=== PATIENT | male | born 1960 | race Caucasian/White ===

== ENCOUNTER 2017-06-19 01:55 | Emergency (ER) | payer OTHER, SELFPAY ==
[~2017-06-19] VITALS: Ht 182.9 cm; Wt 117.9 kg
[~2017-06-19 01:55] MED LIST: CARAFATE1 GM PO; COREG6.25 MG PO; HYDROCHLOROTHIA25 M2 PO; HYDROCODONE-AP1 EAC6 PO; JANUVIA100 MG PO; METFORMIN HCL500 MG PO; MOBIC15 MG; SPIRIVA; VENTOLIN HFA 1818 GM INH; ZOFRAN ODT4 M1 PO
[2017-06-19] MEDS ORDERED: DULERA 100 MCG/13 GM INH (02:01)
[2017-06-19] MEDS ORDERED: SPIRIVA INH (02:01)
[2017-06-19 02:24] LABS: ABSOLUTE BASOPHILS 0.1 thou/uL (0.0-0.2); ABSOLUTE LYMPHOCYTES 3.1 thou/uL (0.8-5.3); BASOPHILS 0.6 %; EOSINOPHILS 0.1 %; HEMATOCRIT 45.4 % (42.0-52.0); LYMPHOCYTES 25.6 %; MCHC 33.1 g/dL (28.0-37.0); MCV 90.5 fL (80.0-100.0); MONOCYTES 7.8 %; MPV 8.1 fl. (7.2-11.1); NUCLEATED RBCS 0 /100WBC; PLATELET COUNT* 205 thou/uL (150-400); POLYS 65.9 %; RBC 5.01 mil/uL (4.50-6.00); RDW-CV 14.3 % (10.5-14.5); WBC 12.2 thou/uL (4.0-11.0)
[2017-06-19 02:40] LABS: ANION GAP 8 mmol/L (7-16); BUN 18 mg/dL (7-18); CHLORIDE 100 mmol/L (98-107); CO2 29 mmol/L (21-32); CREATININE 1.2 mg/dL (0.6-1.3); GLUCOSE 147 mg/dL (70-99); POTASSIUM 3.6 mmol/L (3.5-5.1); SODIUM 137 mmol/L (136-145)
[2017-06-19 02:51] LABS: ALBUMIN 3.3 g/dL (3.4-5.0); ALKALINE PHOSPHATASE 104 U/L (46-116); NT-PRO BRAIN NAT PEPTIDE 242 pg/mL (<300); SGOT 39 U/L (15-37); SGPT 92 U/L (30-65); TOTAL BILIRUBIN 0.4 mg/dL (<0.1-1.0); TOTAL PROTEIN 6.8 g/dL (6.4-8.2); TROPONIN-I LEVEL <0.06 ng/mL (<0.06)
[2017-06-19 03:02] LABS: INFLUENZA A ANTIGEN None Detected (None Detect); INFLUENZA B ANTIGEN None Detected (None Detect)
[2017-06-19] MEDS ORDERED: PULMICORT0.5 MG/22 INH (03:17)
[2017-06-19] MEDS ORDERED: ATIVAN1 MG PO (03:24)
[2017-06-19 03:34] VITALS: BP 124/66
--- NOTE | 2017-06-19 10:25 | EKG ---
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 06/19/17 1025 4 4 Luis Medina MD, [facility] /EPI
== END 2017-06-19 03:34 | disposition home or self-care (01) ==
LOC: M.ERS 01:55
PROVIDERS: Emergency Medicine
DX: J40 Bronchitis, not specified as acute or chronic (principal); E11.9 Type 2 diabetes mellitus without complications; J44.9 Chronic obstructive pulmonary disease, unspecified; I10 Essential (primary) hypertension; F17.210 Nicotine dependence, cigarettes, uncomplicated

== ENCOUNTER 2017-06-23 08:44 | Inpatient (IN) | payer OTHER, SELFPAY ==
[~2017-06-23] VITALS: Ht 182.9 cm; Wt 117.9 kg
[~2017-06-23 08:44] MED LIST changes: +ATIVAN1 MG PO; +DULERA 100 MCG/13 GM INH; +PULMICORT0.5 MG/22 INH; +SPIRIVA INH
[2017-06-23 08:52] VITALS: BP 144/76
[2017-06-23] MEDS ORDERED: PREDNISONE 20 M20 MG PO (09:03)
[2017-06-23 09:30] LABS: HEMATOCRIT 46.3 % (42.0-52.0); HEMOGLOBIN 15.4 gm/dL (14.0-18.0); MCH 29.5 pg (26.0-34.0); MCHC 33.2 g/dL (28.0-37.0); MCV 88.7 fL (80.0-100.0); MPV 8.5 fl. (7.2-11.1); NUCLEATED RBCS 0 /100WBC; PLATELET COUNT* 278 thou/uL (150-400); RBC 5.22 mil/uL (4.50-6.00); RDW-CV 14.3 % (10.5-14.5); WBC 22.5 thou/uL (4.0-11.0)
[2017-06-23 09:47] LABS: ANION GAP 9 mmol/L (7-16); BUN 15 mg/dL (7-18); CALCIUM 8.9 mg/dL (8.5-10.1); CHLORIDE 96 mmol/L (98-107); CO2 27 mmol/L (21-32); CREATININE 1.1 mg/dL (0.6-1.3); GLUCOSE 289 mg/dL (70-99); POTASSIUM 3.6 mmol/L (3.5-5.1); SODIUM 132 mmol/L (136-145)
[2017-06-23 09:51] LABS: ALBUMIN 3.1 g/dL (3.4-5.0); ALKALINE PHOSPHATASE 107 U/L (46-116); LIPASE 98 U/L (73-393); MAGNESIUM 1.5 mg/dL (1.8-2.4); NT-PRO BRAIN NAT PEPTIDE 215 pg/mL (<300); SGOT 22 U/L (15-37); SGPT 64 U/L (30-65); TOTAL BILIRUBIN 1.3 mg/dL (<0.1-1.0); TOTAL PROTEIN 6.7 g/dL (6.4-8.2); TROPONIN-I LEVEL <0.06 ng/mL (<0.06)
[2017-06-23 10:04] LABS: ABSOLUTE LYMPHOCYTES 0.5 thou/uL (0.8-5.3); PLATELET ESTIMATE ADEQUATE
[2017-06-23 10:44] VITALS: BP 139/79
--- NOTE | 2017-06-23 15:11 | EKG ---
[place] [address] ELECTROCARDIOGRAM REPORT Name: ROLANDO HAMILTON Room: [address] ADM IN [facility]#: [id number] Admission: 06/23/17 Attend Phys: Willie Redman, Discharge: Date of : 60 Report #: [id number] THIS REPORT FOR: //name// [facility] ED Test Date: 2017-06-23 Test Time: 09:12:54 Pat Name: ROLANDO HAMILTON Department: Room: 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 : 1960 Requested By: Pérez Gloria Order Number: [id number] MD: Luis Medina Measurements Intervals [place] Rate: 80 P: 75 [place]: 150 QRS: -23 QRSD: 149 T: 88 QT: 405 QTc: 468 Interpretive Statements Sinus rhythm Atrial premature complex Probable left atrial enlargement Right bundle branch block Baseline wander in lead(s) V1 Compared to ECG 06/19/2017 02:25:26 Atrial premature complex(es) now present Electronically Signed On 06-23-2017 15:11:31 [employer] by Luis Medina [email or web address] <ELECTRONICALLY SIGNED> By: Luis Medina MD, [facility] 06/23/17 1511 1 1 Luis Medina MD, [facility] /EPI
[2017-06-23 15:15] LABS: CALCIUM 8.9 mg/dL (8.5-10.1); CREATININE 1.2 mg/dL (0.6-1.3); POTASSIUM 4.3 mmol/L (3.5-5.1)
[2017-06-23 15:31] VITALS: BP 146/68
[2017-06-23 21:00] VITALS: BP 112/67
[2017-06-24 00:03] VITALS: BP 141/78
[2017-06-24 07:30] VITALS: BP 145/69
[2017-06-24 09:21] LABS: HEMATOCRIT 44.2 % (42.0-52.0); HEMOGLOBIN 14.5 gm/dL (14.0-18.0); MCH 29.6 pg (26.0-34.0); MCHC 32.8 g/dL (28.0-37.0); MCV 90.2 fL (80.0-100.0); MPV 8.4 fl. (7.2-11.1); RBC 4.9 mil/uL (4.50-6.00); RDW-CV 14.4 % (10.5-14.5); WBC 16.9 thou/uL (4.0-11.0)
[2017-06-24 09:37] LABS: ALBUMIN 2.9 g/dL (3.4-5.0); CALCIUM 8.9 mg/dL (8.5-10.1); CREATININE 1.1 mg/dL (0.6-1.3); MAGNESIUM 1.7 mg/dL (1.8-2.4); POTASSIUM 4.1 mmol/L (3.5-5.1); TOTAL BILIRUBIN 0.7 mg/dL (<0.1-1.0); TOTAL PROTEIN 6.4 g/dL (6.4-8.2)
[2017-06-24 16:21] LABS: BE -0.5 mmol/L (-2 to +3); HCO3 22.1 mmol/L (22.0-26.0); PCO2 31.3 mmHg (35.0-45.0); PO2 61.1 mmHg (75.0-100.0); pH 7.467 (7.340-7.450)
[2017-06-25 04:42] LABS: HEMATOCRIT 43.6 % (42.0-52.0); HEMOGLOBIN 14.5 gm/dL (14.0-18.0); MCH 29.9 pg (26.0-34.0); MCHC 33.4 g/dL (28.0-37.0); MCV 89.6 fL (80.0-100.0); MPV 8.8 fl. (7.2-11.1); RBC 4.86 mil/uL (4.50-6.00); RDW-CV 14.3 % (10.5-14.5); WBC 19.8 thou/uL (4.0-11.0)
[2017-06-25 04:59] LABS: CALCIUM 9.1 mg/dL (8.5-10.1); MAGNESIUM 1.9 mg/dL (1.8-2.4); POTASSIUM 3.4 mmol/L (3.5-5.1)
[2017-06-25 07:30] VITALS: BP 150/63
[2017-06-25 15:30] VITALS: BP 150/58
[2017-06-25 18:14] LABS: URINE BILIRUBIN NEGATIVE (Negative); URINE BLOOD TRACE (Negative); URINE CLARITY CLEAR; URINE COLOR YELLOW; URINE GLUCOSE-RANDOM 2+ (Negative); URINE KETONES NEGATIVE (Negative); URINE LEUKOCYTES-REFLEX NEGATIVE (Negative); URINE NITRITE-REFLEX NEGATIVE (Negative); URINE PROTEIN NEGATIVE (Negative); URINE SPECIFIC GRAVITY 1.015 (1.005-1.030); URINE UROBILINOGEN 0.2 E.U./dl (0.2-1.0)
[2017-06-25 18:51] LABS: INFLUENZA A ANTIGEN None Detected (None Detect); INFLUENZA B ANTIGEN None Detected (None Detect)
[2017-06-25 21:46] VITALS: BP 128/54
[2017-06-26 00:32] VITALS: BP 134/60
[2017-06-26 06:01] LABS: CALCIUM 9.6 mg/dL (8.5-10.1); CREATININE 1.1 mg/dL (0.6-1.3); MAGNESIUM 1.9 mg/dL (1.8-2.4)
[2017-06-26 07:45] VITALS: BP 137/55
[2017-06-26 08:38] VITALS: BP 137/55
[2017-06-26] MEDS ORDERED: SINGULAIR 10 MG10 M1 PO (10:41)
[2017-06-26] MEDS ORDERED: LEVAQUIN 750 M750 MG PO (10:41)
[2017-06-26] MEDS ORDERED: PREDNISONE 10 M10 MG PO (10:43)
[2017-06-26 10:52] VITALS: BP 137/55
[2017-06-26 11:44] VITALS: BP 137/55
--- NOTE | 2017-06-26 11:54 | CON ---
[address] [address] CONSULTATION Name: ROLANDO HAMILTON Room: [address] IN [facility]#: [id number] Admission: 06/23/17 Attend Phys: Willie Redman, Discharge: 06/26/17 Date of : 60 Report #: [id number] THIS REPORT FOR: //name// CC: Suleiman Redman DATE OF SERVICE: 06/25/2017 REQUESTING PHYSICIAN: Willie Redman MD REASON FOR CONSULTATION: Pneumonia. DISCUSSION: The patient is a pleasant 56-year-old man with a long history of significant tobacco abuse up to 2 packs of cigarettes per day. He does carry a diagnosis of COPD. He has never had, however, full PFTs done. He has been on a variety of inhalers at different times. He notes he does tend to get bronchitis a couple times a year. His family physician will usually provide him with an antibiotic and steroids to get him through those times. He became ill several weeks ago, developed a fever, body aches. Called his physician and was placed on Levaquin and steroids. Was not physically seen at that time, so consequently had no flu swab done or any other evaluation that way. He did have some initial improvement, though did not get back to his baseline. However, then he relapsed again. He was seen in the Emergency Department here on 06/19/2017. At that time, he had a fever up to 102.5 and increasing shortness of breath. When he was seen in the ER here, at that time, O2 saturations were in the 90s, white count was mildly elevated. He was started on some inhaled Pulmicort at that time. Recently, he has been on Dulera and Spiriva. Influenza screen at that time was negative. He returned to the ED on 06/23/2017 due to marked shortness of breath. He was noted to be hypoxic. He was actively bronchospastic. He was admitted to the hospital. He has been treated with additional antibiotics and steroids. Blood sugars were quite high, so his last dose of the steroids was last night. Chest x-rays were not thought to show any acute infiltrates. Since he was still having problems, he was sent for CT scan of his chest. He had one done late yesterday afternoon, which showed bilateral opacities. It was done without contrast. He was then sent back to CT and had a CT angiogram done of his chest. This was negative for pulmonary emboli. Similar to the scan done earlier, continue to show bilateral infiltrates (somewhat patchy as well as ground glass infiltrates). Also appeared to have some prominence of interstitial markings bilaterally. He has been afebrile over the last several days. Subjectively, he is feeling much better. Cough has improved. Not bringing up much sputum now. No hemoptysis. No chest pain. He is extremely anxious. He is concerned to the cost of the hospitalization as well [place] [address] CONSULTATION Name: ROLANDO HAMILTON Room: [address] IN [facility].#: [id number] Admission: 06/23/17 Attend Phys: Willie Redman, Discharge: 06/26/17 Date of : 60 Report #: [id number] He did not get a flu shot this season. 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 They have had issues with their water system. At times, the water has not been hot enough. Also, boiler leakage. He is not aware of any definite mold exposure, but again note the age of the [employer] complex. He does have 3 cats and a turtle at home. He has had no recent travel. No history of TB or exposure to TB that he is aware of. No prior history of thromboembolic disease or heart disease. MEDICATIONS: Currently, at this time, he has been on insulin as needed, lorazepam for anxiety, nicotine patch, ceftriaxone, azithromycin, Coreg, Lovenox for DVT prophylaxis, hydrochlorothiazide, budesonide, Glucophage, Ambien for sleep. He had been on methylprednisolone 62.5 mg IV every 8 hours until his last dose yesterday evening. SOCIAL HISTORY: He is . His does not smoke. 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 Pets at home as noted. FAMILY HISTORY: Positive for lung disease in his father, unknown type. His father was also a heavy smoker. Family history is also positive for heart disease. PHYSICAL EXAMINATION: GENERAL: The patient is seen in his room. His is also present who helped with the history. HEENT: Head is normocephalic and atraumatic. Sclerae nonicteric. Mucous membranes are moist. NECK: Negative for adenopathy. No JVD is noted. No cervical or supraclavicular adenopathy. HEART: Regular rate. He is not tachycardic. No S3 is heard. LUNGS: Reveal breath sounds to be diminished. He has a prolonged expiratory phase. He does have rhonchi heard bilaterally as well as expiratory wheezes. Excursion is equal. No CVA tenderness. ABDOMEN: Protuberant, soft, without appreciable hepatosplenomegaly. EXTREMITIES: He has no clubbing noted. Radial pulses are present. Lower extremities, he does have trace edema noted. SKIN: Warm and dry. NEUROLOGIC: He is alert and oriented x 3. LABORATORY AND X-RAY FINDINGS: Chest films and his CT scan were reviewed. Heart size is upper limits of normal. He does have some prominence of his markings seen particularly in the left base. On the CT scan of his chest, he did not have any pulmonary emboli. He does have the bilateral patchy ground glass infiltrates noted. Overall, certainly appreciate interstitial infiltrates throughout. On his chemistry, his BUN is 19, creatinine of 1.0, potassium is 3.4, serum bicarbonate is 29. Bilirubin was 1.3 on admission, has dropped to 0.7. AST was 39 last week, down to 13 this morning. Albumin 2.9. ProBNP [address]. [place] [address] CONSULTATION Name: ROLANDO HAMILTON Room: [address]#: [id number] Admission: 06/23/17 Attend Phys: Willie Redman, Discharge: 06/26/17 Date of : 60 Report #: [id number] Lactic acid was normal. White blood cell count on admission was 22,500 this morning down to 19,800. He has not had an elevation in his eosinophils. Hemoglobin 14.5, hematocrit of 43.6, platelets are normal. Influenza screen was negative. Mycoplasma titers have been requested. Urine for legionella and strep pneumonia antigen are pending. Arterial blood gases done yesterday, he had a pH of 7.47, a pCO2 of 31, pO2 of 61, bicarbonate of 22 with a saturation of 91%. Blood cultures are negative. IMPRESSION: 1. Bilateral pulmonary infiltrates, best appreciated on CT imaging. May have some chronic interstitial lung disease baseline along with his chronic obstructive pulmonary disease. With his history, this does appear main issue now has been pneumonia. Could be viral. 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 There is also a possibility of a hypersensitivity pneumonitis. However, eosinophils have not been elevated, does make it somewhat less likely. 2. Chronic obstructive pulmonary disease exacerbation. Severity of his lung disease is unknown. He is generally able to keep up with his work. He may walk up to a mile and a half to 2 miles per day, but does not require any strenuous lifting, etc. I suspect he probably has at least moderate disease. 3. Tobacco abuse. 4. Diabetes mellitus, blood sugars elevated in part due to his steroid use. 5. Obesity. RECOMMENDATIONS: 1. Would continue antibiotics at this time. 2. I have resumed IV steroids albeit at a lower dose. I feel he does need them at this time. 3. I have also added Brovana while he is here in the hospital, which can help take the place of the Dulera he was on at home. 4. He is quite anxious to be discharged [facility]. However, he does not look ready for discharge today. 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 5. Long-term smoking cessation is certainly advised. 6. Once he is over this acute event, consider full pulmonary function studies. Will need some follow up imaging in the future as well. 7. If he does not continue to improve or have clearing of infiltrates in the future, additional evaluation may also be indicated to assess for ILD or hypersensitivity pneumonitis. 8. Also consider echocardiogram. 9. Apparently he is out of network. He is quite concerned with any additional [address] [address] CONSULTATION Name: ROLANDO HAMILTON Narinder Room: [address] IN [facility]#: [id number] Admission: 06/23/17 Attend Phys: Willie Redman, Discharge: 06/26/17 Date of : 60 Report #: [id number] testing that may be done at this time given the fact he is out of network and the potential cost that he may be faced with. <ELECTRONICALLY SIGNED> By: Joshua Ruffin MD 06/26/17 1154 1115 [id number] Carrion MD /nt
[2017-06-26 16:12] LABS: GLYCOHEMOGLOBIN (HGB A1C) 8.8 % (4.8-5.6)
[2017-06-27 21:13] LABS: MYCOPLASMA PNEUMONIA IgG 207 U/mL (0-99); MYCOPLASMA PNEUMONIA IgM <770 U/mL (0-769)
== END 2017-06-26 10:45 | disposition home or self-care (01) | DRG 177 ==
LOC: M.ERS 08:44 → M.ORTHSURG 10:16 → M.TBA-ER 10:16 → M.ORTHSURG 12:24
PROVIDERS: Emergency Medicine Emergency Medical Services; ADMIT Family Medicine
DX: J15.6 Pneumonia due to other Gram-negative bacteria (principal); J96.01 Acute respiratory failure with hypoxia; J44.1 Chronic obstructive pulmonary disease with (acute) exacerbation; J44.0 Chronic obstructive pulmonary disease with (acute) lower respiratory infection; I10 Essential (primary) hypertension; F17.210 Nicotine dependence, cigarettes, uncomplicated; E66.9 Obesity, unspecified; F41.9 Anxiety disorder, unspecified; E87.6 Hypokalemia; E11.65 Type 2 diabetes mellitus with hyperglycemia; T38.0X5A Adverse effect of glucocorticoids and synthetic analogues, initial encounter; Z68.35 Body mass index [BMI] 35.0-35.9, adult; Z79.899 Other long term (current) drug therapy; Z82.5 Family history of asthma and other chronic lower respiratory diseases; Y92.89 Other specified places as the place of occurrence of the external cause